=== PATIENT | female | born 1940 | race Caucasian/White ===

== ENCOUNTER 2017-04-07 16:21 | Observation (INO) | payer MEDICARE, OTHER ==
[2017-04-07] MEDS ORDERED: Lactated Ringers 1,000 ML IV SCH ×2 (17:00→18:00)
[2017-04-07 17:01] LABS: Appearance SLIGHTLY CLOUDY (CLEAR); Specific Gravity 1.025 (1.005-1.025)
[2017-04-07 17:02] LABS: BASOPHIL % 0.2 % (0.0-0.4); Basophil (Absolute #) 0.03 (0-0.4); Eosinophil % 1.1 % (0.00-5.0); Eosinophil (Absolute #) 0.15 (0-0.5); Granulocyte Absolute (ANC) 8.49 (1.4-6.9); Granulocytes % 64.8 % (36.0-66.0); Hematocrit 43.5 % (35-47); Hemoglobin 14.1 gm/dl (12.0-16.0); Lymphocyte (Absolute #) 3.42 (1.0-4.6); Mean Cell Volume 85.6 fl (78-100); Mean Corpuscular Hemoglobin 27.8 pg (26-32); Mean Corpuscular Hgb Concent. 32.4 g/dl (32-36); Mean Platelet Volume 9.8 fl (6-9.5); Monocyte (Absolute #) 1.04 (0.0-1.3); Monocytes % 7.9 % (0.0-12.0); Platelet Count 287 K/mm3 (150-450); Red Blood Count 5.08 M/mm3 (4.1-5.4); White Blood Count 13.1 K/mm3 (4.0-10.5)
[2017-04-07 17:02] LABS: Bilirubin NEGATIVE (NEGATIVE); Blood NEGATIVE Ery/ul (0-5); Glucose NEGATIVE (NEGATIVE); Ketones NEGATIVE (NEGATIVE); Leukocyte Esterase NEGATIVE (NEGATIVE); Nitrite NEGATIVE (NEGATIVE); Protein,Urine Dip NEGATIVE (Negative); Urobilinogen NORMAL mg/dL (0-1)
[2017-04-07] MEDS ORDERED: Lactated Ringers 1,000 ML IV ONE (17:12)
--- NOTE | 2017-04-07 17:12 | ERPHSYRPT ---
- History of Present Illness Time Seen by Provider: 04/07/17 16:30 Source: patient Patient Subjective Stated Complaint: states had blood work done and was told to come to er for dehydration. c/o weakness. had diarrhea for two days and vomiting for one day. Triage Nursing Assessment: ambulated to room per self. skin w/d, color normal, resp easy. mouth moist. Physician History: CC: dehydrated Hx: 76 y/o patient of Dr Rivera with hx of renal insuff. She has afib. She had vomiting and diarrhea Tues and Wed. She is now feeling better but still somewhat weak. She has no fever. Normal urination but has a shy bladder. She came to get a routine follow up blood test and was called and told to come to ER for dehydration. No hx of CHF. Severity: mild Allergies/Adverse Reactions: No Known Drug Allergies Allergy (Verified 04/07/17 16:45) Home Medications: Amlodipine Besylate 5 mg [Norvasc 5 mg] 5 mg PO DAILY 04/06/17 [History] Calcium [Natural Calcium] 500 mg PO DAILY 04/06/17 [History] Dronedarone Hydrochloride 400* [Multaq 400 MG] 400 mg PO BID 04/06/17 [ History] Hydrochlorothiazide 25 mg [hydroDIURIL 25 MG] 25 mg PO DAILY 04/06/17 [ History] Multivitamin [Multivitamins] 1 each PO DAILY 04/06/17 [History] Olmesartan Medoxomil 20 mg [Benicar 20 MG] 20 mg PO DAILY 04/06/17 [ History] Pravastatin Sodium [Pravachol] 20 mg PO QHS 04/06/17 [History] Rivaroxaban [Xarelto] 20 mg PO DAILY 04/06/17 [History] Hx Tetanus, Diphtheria Vaccination/Date Given: No Hx Influenza Vaccination/Date Given: Yes Hx Pneumococcal Vaccination/Date Given: No - Review of Systems Constitutional: Malaise, No Fever, No Chills Eyes: No Symptoms Ears, Nose, & Throat: No Symptoms Respiratory: No Cough, No Dyspnea Cardiac: No Chest Pain Abdominal/Gastrointestinal: Vomiting (gone), Diarrhea (gone), No Abdominal Pain , No Nausea Genitourinary Symptoms: No Dysuria Skin: No Rash Neurological: No Headache All Other Systems: Reviewed and Negative - Past Medical History Pertinent Past Medical History: Yes Neurological History: No Pertinent History ENT History: No Pertinent History Cardiac History: Arrhythmia, High Cholesterol, Hypertension Respiratory History: No Pertinent History Endocrine Medical History: No Pertinent History Musculoskeletal History: No Pertinent History GI Medical History: No Pertinent History History: Renal Disease Psycho-Social History: No Pertinent History Female Reproductive Disorders: No Pertinent History - Past Surgical History Past Surgical History: Yes Neuro Surgical History: No Pertinent History Cardiac: No Pertinent History Respiratory: No Pertinent History Gastrointestinal: Appendectomy Genitourinary: No Pertinent History Musculoskeletal: Orthopedic Surgery Female Surgical History: No Pertinent History Other Surgical History: Right rotator cuff repair - Social History Smoking Status: Former smoker Exposure to second hand smoke: Yes Drug Use: none Patient Lives Alone: No - Female History Hx Now: No - Nursing Vital Signs Nursing Vital Signs: Initial Vital Signs Temperature 97.7 F 04/07/17 16:33 Pulse Rate 65 04/07/17 16:33 Respiratory Rate 16 04/07/17 16:33 Blood Pressure 170/92 04/07/17 16:33 O2 Sat by Pulse Oximetry 99 04/07/17 16:33 Pain Scale Pain Intensity 0 - Physical Exam General Appearance: alert Eye Exam: PERRL/EOMI Ears, Nose, Throat Exam: normal ENT inspection, moist mucous membranes Neck Exam: normal inspection, non-tender, supple Respiratory Exam: normal breath sounds Cardiovascular Exam: regular rate/rhythm Gastrointestinal/Abdomen Exam: soft, No tenderness, No distention, No mass, No guarding Extremity Exam: normal inspection, normal range of motion, No calf tenderness, No pedal edema Neurologic Exam: alert, oriented x 3, cooperative, rig mechanic II-XII nml as tested, sensation nml, No motor deficits Skin Exam: warm, dry, No rash SpO2 Interpretation: normal SpO2: 99 Oxygen Delivery: Room Air - Course Nursing assessment & vital signs reviewed: Yes Ordered Tests: Active Orders 24 hr Category Date Time Status Cath for Specimen-Straight STAT Care 04/07/17 16:39 Active IV Insertion STAT Care 04/07/17 16:38 Active CBC W DIFF Stat Lab 04/07/17 16:56 Completed CMP Stat Lab 04/07/17 16:56 Completed UA W/RFX UR CULTURE Stat Lab 04/07/17 17:00 Completed Medication Summary Generic Name Dose Route Start Last Admin Trade Name Marlon PRN Reason Stop Dose Admin Lactated Ringer's 1,000 mls @ 500 mls/hr 04/07/17 17:00 04/07/17 17:15 Lactated Ringers IV 05/07/17 16:59 500 mls/hr .Q2H DWAIN Administration Discontinued Medications Generic Name Dose Route Start Last Admin Trade Name Marlon PRN Reason Stop Dose Admin Lactated Ringer's Confirm 04/07/17 17:12 Lactated Ringers Administered 04/07/17 17:13 Dose 1,000 mls @ ud IV .[facility] Lab/Rad Data: Laboratory Result Diagrams 04/07/17 16:56 04/07/17 16:56 Laboratory Results 04/07/17 04/07/17 04/07/17 Range/Units 17:00 16:56 16:56 WBC 13.1 H (4.0-10.5) K/mm3 RBC 5.08 (4.1-5.4) M/mm3 Hgb 14.1 (12.0-16.0) gm/dl Hct 43.5 (35-47) % MCV 85.6 (78-100) fl MCH 27.8 (26-32) pg MCHC 32.4 (32-36) g/dl RDW 13.0 (11.5-14.0) % Plt Count 287 (150-450) K/mm3 MPV 9.8 H (6-9.5) fl Gran % 64.8 (36.0-66.0) % Lymphocytes % 26.0 (24.0-44.0) % Monocytes % 7.9 (0.0-12.0) % Eosinophils % 1.1 (0.00-5.0) % Basophils % 0.2 (0.0-0.4) % Basophils # 0.03 (0-0.4) Sodium 137 (136-145) mEq/L Potassium 4.3 (3.5-5.1) mEq/L Chloride 101 (98-107) mEq/L Carbon Dioxide 23.2 (21-32) mEq/L Anion Gap 16.7 H (5-15) MEQ/L BUN 36 H (9-20) mg/dL Creatinine 2.21 H (0.55-1.30) mg/dl Estimated GFR 23 ML/MIN Glucose 91 (70-110) MG/DL Calcium 8.8 (8.5-10.1) mg/dL Total Bilirubin 1.00 (0.2-1.0) mg/dL AST 16 (15-37) U/L ALT 31 (12-78) U/L Alkaline Phosphatase 85 (46-116) U/L Serum Total Protein 8.1 (6.4-8.2) gm/dL Albumin 4.1 (3.4-5.0) g/dL Ur Collection Type CCMS Urine Color YELLOW (YELLOW) Urine Appearance SLIGHTLY CLOUDY (CLEAR) Urine pH 5.0 (5-6) Ur Specific [place] 1.025 (1.005-1.025) Urine Protein NEGATIVE (Negative) Urine Ketones NEGATIVE (NEGATIVE) Urine Blood NEGATIVE (0-5) Keaton/ul Urine Nitrite NEGATIVE (NEGATIVE) Urine Bilirubin NEGATIVE (NEGATIVE) Urine Urobilinogen NORMAL (0-1) mg/dL Ur Leukocyte Esterase NEGATIVE (NEGATIVE) Urine Culture Reflexed NO (NO) Urine Glucose NEGATIVE (NEGATIVE) mg/dL Specimen Received 04-07-17 1700 - Progress Progress Note: 04/07/17 17:[address] Rivera who advised IVF overnight obs. Called Dr Anastasiya Dixon who accepts. Discussed with DrMerritt: Miguel Crocker Will see patient in: hospital (observation) Counseled pt/family regarding: lab results, diagnosis, need for follow-up - Departure Time of Disposition: 17:33 Departure Disposition: Observation Clinical Impression: Azotemia Condition: Fair Critical Care Time: No Referrals: YARY RIVERA [Primary Care Provider] -
[2017-04-07 17:22] LABS: ALBUMIN 4.1 g/dL (3.4-5.0); ANION GAP 16.7 MEQ/L (5-15); Calcium 8.8 mg/dL (8.5-10.1); Carbon Dioxide 23.2 mEq/L (21-32); Creatinine 1 2.21 mg/dl (0.55-1.30); Potassium 4.3 mEq/L (3.5-5.1); Total Protein 8.1 gm/dL (6.4-8.2)
[2017-04-07] MEDS ORDERED: TYLENOL 325 MG PO PRN (17:56)
--- NOTE | 2017-04-07 20:28 | PCM.HP ---
History of Present Illness - Chief Complaint Chief Complaint: azotemia Date: 04/07/17 History of Present Illness: is a 76 year old female. who became ill wiht nausea vomiting and diarrhea 3 days ago the diarrhea resolved yesterday. She had some labs done 4 days ago and was told to hold benicar and recheck labs today. labs returned with worsneing renal function and Dr. Rivera advised she go to ED. She did and was admitted for dehydration. She is feeling well has started eating today and drinking today. No chest pain or sob. no abdominal pain nausea or vomiting. She follows with Dr. patel for her CKD - Review of Systems Constitutional: No Fever, No Chills Eyes: No Symptoms Ears, Nose, & Throat: No Symptoms Respiratory: No Cough, No Short Of Breath Cardiac: No Chest Pain, No Edema, No Syncope Abdominal/Gastrointestinal: No Abdominal Pain, No Nausea, No Vomiting, No Diarrhea Genitourinary Symptoms: No Dysuria Musculoskeletal: No Back Pain, No Neck Pain Skin: No Rash Neurological: No Dizziness, No Focal Weakness, No Sensory Changes Psychological: No Symptoms Endocrine: No Symptoms Hematologic/Lymphatic: No Symptoms Immunological/Allergic: No Symptoms Medications & Allergies Home Medications: Home Medication List Amlodipine Besylate 5 mg [Norvasc 5 mg] 5 mg PO DAILY 04/06/17 [History Confirmed 04/07/17] Calcium [Natural Calcium] 500 mg PO DAILY 04/06/17 [History Confirmed 04/07/17] Dronedarone Hydrochloride 400* [Multaq 400 MG] 400 mg PO BID 04/06/17 [ History Confirmed 04/07/17] Multivitamin [Multivitamins] 1 each PO DAILY 04/06/17 [History Confirmed ] Olmesartan Medoxomil 20 mg [Benicar 20 MG] 20 mg PO DAILY 04/06/17 [ History Confirmed 04/07/17] Pravastatin Sodium [Pravachol] 20 mg PO DAILY 04/06/17 [History Confirmed ] Rivaroxaban [Xarelto] 20 mg PO DAILY 04/06/17 [History Confirmed 04/07/17] Chlorthalidone 25 mg PO DAILY 04/07/17 [History Confirmed 04/07/17] Solifenacin Succinate [Vesicare] 5 mg PO DAILY 04/07/17 [History Confirmed 04/07] Allergies/Adverse Reactions: Allergies Allergy/AdvReac Type Severity Reaction Status Date / Time No Known Drug Allergies Allergy Verified 04/07/17 16:45 - Past Medical History Past Medical History: Yes Neurological History: No Pertinent History ENT History: No Pertinent History Cardiac History: Arrhythmia, High Cholesterol, Hypertension Respiratory History: No Pertinent History Endocrine Medical History: No Pertinent History Musculoskelatal History: Arthritis GI Medical History: No Pertinent History History: Renal Disease Pyscho-Social History: No Pertinent History Reproductive Disorders: No Pertinent History - Female History Are you now?: No - Past Surgical History Past Surgical History: Yes Neuro Surgical History: No Pertinent History Cardiac History: No Pertinent History Respiratory Surgery: No Pertinent History GI Surgical History: Appendectomy Genitourinary Surgical Hx: No Pertinent History Musculskeletal Surgical Hx: Orthopedic Surgery Female Surgical History: No Pertinent History Other Surgical History: Right rotator cuff repair - Social History Smoking Status: Former smoker How long have you smoked: 40 yrs Exposure to second hand smoke: No Alcohol: None Drug Use: none - Physical Exam Vital Signs: Vital Signs - 24 hr Temp Pulse Resp BP BP Pulse Ox 04/07/17 17:57 97.9 F 56 L 16 165/71 93 L 04/07/17 17:33 99 04/07/17 17:31 57 L 16 143/61 97 04/07/17 16:33 97.7 F 65 16 170/92 99 Assessment/Plan (1) Acute on chronic renal failure Current Visit: Yes Status: Acute Assessment & Plan: she has benicar on hold since prior to admission she is to hold her xarelto starting tomorrow for colonoscopy on monday. she is feeling better now continue fluid hydration overnight monitor am renal function likely home tomorrow increase LR to 150 mL/h Code(s): N17.9 - ACUTE KIDNEY FAILURE, UNSPECIFIED; N18.9 - CHRONIC KIDNEY DISEASE, UNSPECIFIED (2) Atrial fibrillation Current Visit: Yes Status: Chronic Code(s): I48.91 - UNSPECIFIED ATRIAL FIBRILLATION (3) Essential hypertension Current Visit: Yes Status: Chronic Code(s): I10 - ESSENTIAL (PRIMARY) HYPERTENSION
[2017-04-07] MEDS ORDERED: ZOCOR 20MG PO SCH (22:00)
[2017-04-07] MEDS ORDERED: Multaq 400 MG PO SCH (22:00)
[2017-04-08 06:13] LABS: BASOPHIL % 0.3 % (0.0-0.4); Basophil (Absolute #) 0.03 (0-0.4); Eosinophil % 1.8 % (0.00-5.0); Eosinophil (Absolute #) 0.17 (0-0.5); Granulocyte Absolute (ANC) 6.38 (1.4-6.9); Granulocytes % 66.6 % (36.0-66.0); Hematocrit 36.2 % (35-47); Hemoglobin 11.8 gm/dl (12.0-16.0); Lymphocyte (Absolute #) 2.24 (1.0-4.6); Lymphocytes % 23.4 % (24.0-44.0); Mean Corpuscular Hgb Concent. 32.6 g/dl (32-36); Mean Platelet Volume 9.9 fl (6-9.5); Monocyte (Absolute #) 0.76 (0.0-1.3); Monocytes % 7.9 % (0.0-12.0); Platelet Count 236 K/mm3 (150-450); Red Blood Count 4.21 M/mm3 (4.1-5.4); Red Cell Distribution Width 12.7 % (11.5-14.0); White Blood Count 9.6 K/mm3 (4.0-10.5)
[2017-04-08 06:48] LABS: Calcium 8.5 mg/dL (8.5-10.1); Carbon Dioxide 22.9 mEq/L (21-32); Creatinine 1 1.69 mg/dl (0.55-1.30); Potassium 4.2 mEq/L (3.5-5.1)
[2017-04-08 07:46] VITALS: BP 134/65; PULSE 84; O2SAT 93
--- NOTE | 2017-04-08 08:33 | PCM.DS ---
Discharge Summary Date of Admission: 04/07/17 17:50 Date of Discharge: 04/08/2017 Admitting Physician: YARY MOULTON Primary Care Provider: YARY MOULTON Allergies Allergies No Known Drug Allergies Allergy (Verified 04/07/17 16:45) Hospital Summary - Hospital Course Hospital Course: Ms. Anders sufferes from CKD and follows with Dr. Deras. She was feeling nasueated vomiting and diarrhea several days prior to admission and was seen and had increased creatinine she started to improve and was eating better the day of admission with no diarrhea and went for repeat lab draw that showed persitent elevated creatinine above baseline and she had been holding her losartan for 4 days. She was advised by her pcp to go to the ED. She was thus admitted overnight for fluid resucitation. She remained asymptomatic overnight and was placed on LR at 150 mL/h and tolerated well with good urine output no swelling or shortness of breath. Her blood pressure was controlled and creatinine was slightly better then baseline in the am and she was requesting discharge to home. at time of discharge she will be holding her xarelto for upcomming colonoscopy on Monday. Discussed with her to discuss with pcp, rib cutter or yard brakeman about possibly reducing dose to 15 mg with her creatinine clearance. - Vitals & Intake/Output Vital Signs: Vital Signs Temperature 97.6 F 04/08/17 07:45 Pulse Rate 84 04/08/17 07:45 Respiratory Rate 18 04/08/17 07:45 Blood Pressure 134/65 04/08/17 07:45 O2 Sat by Pulse Oximetry 93 L 04/08/17 07:45 Intake & Output: Intake & Output 04/05/17 04/06/17 04/07/17 04/08/17 11:59 11:59 11:59 11:59 Intake Total 1757 Balance 1757 Weight 77.8 kg - Lab Result Diagrams: 04/08/17 05:52 04/08/17 05:52 Lab Results-Last 24 Hrs: Lab Results-Last 24 Hours 04/08/17 04/08/17 Range/Units 05:52 05:52 WBC 9.6 (4.0-10.5) K/mm3 RBC 4.21 (4.1-5.4) M/mm3 Hgb 11.8 L (12.0-16.0) gm/dl Hct 36.2 (35-47) % MCV 86.0 (78-100) fl MCH 28.0 (26-32) pg MCHC 32.6 (32-36) g/dl RDW 12.7 (11.5-14.0) % Plt Count 236 (150-450) K/mm3 MPV 9.9 H (6-9.5) fl Gran % 66.6 H (36.0-66.0) % Lymphocytes % 23.4 L (24.0-44.0) % Monocytes % 7.9 (0.0-12.0) % Eosinophils % 1.8 (0.00-5.0) % Basophils % 0.3 (0.0-0.4) % Basophils # 0.03 (0-0.4) Sodium 139 (136-145) mEq/L Potassium 4.2 (3.5-5.1) mEq/L Chloride 106 (98-107) mEq/L Carbon Dioxide 22.9 (21-32) mEq/L Anion Gap 14.0 (5-15) MEQ/L BUN 33 H (9-20) mg/dL Creatinine 1.69 H (0.55-1.30) mg/dl Estimated GFR 31 ML/MIN Glucose 93 (70-110) MG/DL Calcium 8.5 (8.5-10.1) mg/dL Discharge Exam General Appearance: no apparent distress, alert Neurologic Exam: alert, oriented x 3, cooperative, normal mood/affect, nml cerebellar function, sensation nml, No motor deficits Skin Exam: normal color, warm, dry Eye Exam: PERRL, EOMI, eyes nml inspection Ears, Nose, Throat Exam: normal ENT inspection, pharynx normal, moist mucous membranes Neck Exam: normal inspection, non-tender, supple, full range of motion Respiratory Exam: normal breath sounds, lungs clear, No respiratory distress Cardiovascular Exam: regular rate/rhythm, normal heart sounds Gastrointestinal/Abdomen Exam: soft, No tenderness, No mass Extremity Exam: normal inspection, normal range of motion Back Exam: normal inspection, normal range of motion, No CVA tenderness, No vertebral tenderness Pelvic Exam: deferred Rectal Exam: deferred Final Diagnosis/Problem List - Final Discharge Diagnosis/Problem (1) Acute on chronic renal failure Status: Acute (2) Atrial fibrillation Status: Chronic (3) Essential hypertension Status: Chronic - Discharge Discharge Date: 04/08/17 Disposition: Home, Self-Care Condition: Stable Prescriptions: Continue Pravastatin Sodium [Pravachol] 20 mg PO DAILY Calcium [Natural Calcium] 500 mg PO DAILY Amlodipine Besylate 5 mg [Norvasc 5 mg] 5 mg PO DAILY Olmesartan Medoxomil 20 mg [Benicar 20 MG] 20 mg PO DAILY Dronedarone Hydrochloride 400* [Multaq 400 MG] 400 mg PO BID Rivaroxaban [Xarelto] 20 mg PO DAILY Multivitamin [Multivitamins] 1 each PO DAILY Chlorthalidone 25 mg PO DAILY Solifenacin Succinate [Vesicare] 5 mg PO DAILY Instructions: Acute Kidney Failure Additional Instructions: Do not restart Xarelto until after colonoscopy as directed by your physician. Drink plenty of water. Follow up with: YARY MOULTON [Primary Care Provider] - Forms: Discharge Instructions
[2017-04-08] MEDS ORDERED: NORVASC 5 MG PO SCH (10:00)
[2017-04-08] MEDS ORDERED: NON-FORMULARY ITEM (Chlorthalidone [Chlorthalidone] 25 MG) PO SCH (10:00)
== END 2017-04-08 09:34 | disposition home or self-care (01) ==
LOC: ED 16:21 → MED SURG 17:50
PROVIDERS: ADMIT Family Medicine; ATTEND Family Medicine
DX: N17.9 Acute kidney failure, unspecified (principal); I12.9 Hypertensive chronic kidney disease with stage 1 through stage 4 chronic kidney disease, or unspecified chronic kidney disease; N18.9 Chronic kidney disease, unspecified; I48.91 Unspecified atrial fibrillation; I10 Essential (primary) hypertension; E78.00 Pure hypercholesterolemia, unspecified
CPT/HCPCS: 93268 ×2; 99285; 36000; 96360; 96361; 81002; 36415 ×2; 85025 ×2; 80048 ×2; 80053; P9612; G0378; A9270-GY

== ENCOUNTER 2017-04-11 05:52 | Day surgery (SDC) | payer MEDICARE, OTHER ==
[2017-04-11] MEDS ORDERED: DIPRIVAN 200 MG/20 ML IV ONE (05:53)
[2017-04-11] MEDS ORDERED: Ketamine HCl 50 MG/ML IV ONE (05:53)
[2017-04-11] MEDS ORDERED: Lactated Ringers 1,000 ML IV ONE (06:11)
[2017-04-11] MEDS ORDERED: Lactated Ringers 1,000 ML IV SCH (06:30)
[2017-04-11 08:37] VITALS: O2SAT 97
[2017-04-11 08:53] VITALS: BP 140/63; PULSE 62
--- NOTE | 2017-04-11 14:48 | OP ---
SURGERY DATE/TIME: 04/11/2017 0727 PREOPERATIVE DIAGNOSIS: Rectal bleeding. POSTOPERATIVE DIAGNOSIS: A 1 cm polyp in the transverse colon and focal area of colitis. PROCEDURE: Colonoscopy with cold biopsy polypectomy. SURGEON: Dr. Patel. ANESTHESIA: MAC. Medications given by anesthesia department. HISTORY: The patient is a 76 year-old white female presents for colonoscopic evaluation. She reports she has been having problems rectal bleeding intermittently. The patient was felt the need to have endoscopic evaluation. She reported she had a previous colonoscopy about seven years ago. The patient was appraised of the risks of the procedure including the risk of perforation, phlebitis, untoward reaction to medication, bleeding and missed lesions. The patient verbalized her understanding and desired to have the procedure performed. DESCRIPTION OF PROCEDURE: The patient was given the medications by the anesthesia department. She had continuous pulse oximetry, ECG monitoring, intermittent blood pressure monitoring and tidal CO2 monitoring during the examination. She was placed in the left lateral decubitus position. A digital rectal examination was performed and revealed normal anal sphincter tone and no masses. The flexible Olympus pediatric colonoscope was used to intubate the rectum. A view of the colon was developed sequentially to the cecum. Upon insertion and withdrawal, including a retroflex view in the rectum, was noted a focal area of colitis in the sigmoid colon which was apparent with erosion and mucus appearance with small amounts of blood. There was also noted a small polyp in the proximal transverse colon that was sessile. It was removed using multiple passes with cold biopsy forceps to completely destroy the lesion. The scope was removed from the patient who tolerated the procedure well and was sent back to OP recovery in good condition. The prep was noted to be fair to good.
== END 2017-04-11 08:55 | disposition home or self-care (01) ==
LOC: SDC 05:52
PROVIDERS: ATTEND Family Medicine
PROC: 0DBL8ZX Excision of Transverse Colon, Via Natural or Artificial Opening Endoscopic, Diagnostic (ICD-10-PCS; principal; 2017-04-11)
DX: K62.5 Hemorrhage of anus and rectum (principal); K63.5 Polyp of colon
CPT/HCPCS: 00812; 88305; 99100; J2704

== ENCOUNTER 2020-03-06 10:34 | Observation (INO) | payer MEDICARE, OTHER ==
[2020-03-06] MEDS ORDERED: DUONEB 0.5-3 MG/3 ml Neb IH ONE (10:54)
[2020-03-06] MEDS: DUONEB 0.5-3 MG/3 ml Neb IH SCH ×3 (11:02→18:56)
[2020-03-06] MEDS ORDERED: Ativan 2 MG/1 ML VIAL IV SCH (11:15)
[2020-03-06 11:18] LABS: Absolute Neutrophil Ct (ANC) 8.11 (1.4-6.9); BASOPHIL % 0.4 % (0.0-0.4); Basophil (Absolute #) 0.05 (0-0.4); Eosinophil % 1.3 % (0.00-5.0); Eosinophil (Absolute #) 0.16 (0-0.5); Hemoglobin 9.7 gm/dl (12.0-16.0); Lymphocyte (Absolute #) 2.85 (1.0-4.6); Lymphocytes % 23.4 % (24.0-44.0); Mean Corpuscular Hemoglobin 24.6 pg (26-32); Mean Corpuscular Hgb Concent. 30.3 g/dl (32-36); Mean Platelet Volume 8.6 fl (7.5-11.0); Monocytes % 8.2 % (0.0-12.0); Neutrophil % 66.7 % (36.0-66.0); Platelet Count 341 K/mm3 (150-450); Red Blood Count 3.95 M/mm3 (4.1-5.4); Red Cell Distribution Width 15.4 % (11.5-14.0); White Blood Count 12.2 K/mm3 (4.0-10.5)
--- NOTE | 2020-03-06 11:27 | XRAY ---
Indication: Dyspnea, tachycardia, and edema. Comparison: None Portable chest demonstrates cardiomegaly, central vascular congestion, and small bibasilar effusions/atelectasis favoring cardiac decompensation/CHF. Superimposed pneumonia not completely excluded. Bony thorax intact.
[2020-03-06 11:43] LABS: INR 1.46 (0.8-3.0); PROTIME 16.6 SECONDS (9.95-12.35)
[2020-03-06 11:46] LABS: ALBUMIN 4.4 g/dL (3.5-5.0); ALKALINE PHOSPHATASE 74 U/L (38-126); ANION GAP 13.6 MEQ/L (5-15); BLOOD UREA NITROGEN 26 mg/dL (7-17); CHLORIDE 105 mmol/L (98-107); Calcium 9.8 mg/dL (8.4-10.2); Carbon Dioxide 23 mmol/L (22-30); Creatinine 1 1.63 mg/dL (0.52-1.04); EST GLOMERULAR FILTRATION RATE 32.4 ML/MIN; Glucose 99 mg/dL (74-106); NT PRO BNP 1780 pg/mL (0-1800); PTT 33.5 SECONDS (25.3-37.0); Potassium 3.9 mmol/L (3.5-5.1); SGOT/AST 27 U/L (14-36); SGPT/ALT 18 U/L (0-35); SODIUM 138 mmol/L (137-145); TROPONIN < 0.012 ng/mL (0.000-0.034); Total Protein 7.5 g/dL (6.3-8.2)
[2020-03-06] MEDS ORDERED: solu-MEDROL 125 MG IV SCH (12:00)
--- NOTE | 2020-03-06 12:38 | XRAY ---
Indication: Leg edema. Tachycardia. Dyspnea. Two-dimensional sonogram and color Doppler imaging of the major venous vessels of the left and right leg was performed. Comparison: None No thrombus seen in the examined deep venous vessels of the left and right leg including greater saphenous vein. Veins demonstrate normal compressibility. Venous waveforms are normal with and without augmentation. Impression: Left and right legs negative for DVT.
[2020-03-06 12:50] LABS: Appearance CLEAR (CLEAR); Bilirubin NEGATIVE (NEGATIVE); Blood NEGATIVE Ery/ul (0-5); Glucose NEGATIVE (NEGATIVE); Ketones NEGATIVE (NEGATIVE); Leukocyte Esterase NEGATIVE (NEGATIVE); Mucus SLIGHT /HPF (NEGATIVE); Nitrite NEGATIVE (NEGATIVE); Protein,Urine Dip NEGATIVE (Negative); Specific Gravity 1.008 (1.005-1.025); Urobilinogen NEGATIVE mg/dL (0-1)
[2020-03-06] MEDS ORDERED: Lasix 40 MG/4 ML IV ONE (13:00)
[2020-03-06] MEDS: Sodium Chloride 0.9% 1000 ML 1,000 ML IV SCH (13:02)
--- NOTE | 2020-03-06 14:20 | ECHO ---
DATE OF PROCEDURE: 03/06/2020 CLINICAL INFORMATION: Dyspnea, tachycardia, lower extremity edema. The M-mode 2D, and Doppler echocardiogram including color flow Doppler shows the left ventricle is normal in size at 4.6 cm. There is no thrombus present. The septal wall thickness is increased at 1.5 cm. The left ventricular posterior wall thickness is increased at 1.5 cm. There is accentuated contractility of the left ventricle. The ejection fraction is 73%. The right ventricle is grossly normal. The left atrium is normal in size. The interatrial septum is intact. The right atrium is normal. The aortic valve opens well. There is no aortic regurgitation. There is mitral valve leaflet thickening associated with mild mitral regurgitation. There is mild tricuspid regurgitation. The right ventricular systolic pressure is elevated 59 mm of Mercury. The pulmonic valve is not well visualized. The aortic root is normal at 3.0 cm. There is a medium sized posterior pericardial effusion present. There is no evidence of tamponade although the echocardiogram is technically difficult. IMPRESSION: 1) MEDIUM SIZED POSTERIOR PERICARDIAL EFFUSION. 2) MILD TO MODERATE CONCENTRIC LEFT VENTRICULAR HYPERTROPHY. 3) ACCENTUATED CONTRACTILITY OF THE LEFT VENTRICLE. 4) MILD MITRAL REGURGITATION. 5) MILD TRICUSPID REGURGITATION. 6) SEVERE PULMONARY HYPERTENSION.
--- NOTE | 2020-03-06 18:19 | XRAY ---
Indication: Pulmonary edema. Multiple contiguous axial images obtained through the chest without contrast as ordered. Comparison: February 19, 2020. Heart remains enlarged again with small pericardial effusion. Aorta remains mildly larger sclerotic without aneurysm. No pathologic mediastinal lymphadenopathy. Stable small hiatal hernia. Lungs demonstrates worsening mild/moderate bilateral pleural effusions with new mild bibasilar compressive atelectasis. Remaining lungs demonstrate stable pulmonary emphysema. Bony thorax intact again with minimal degenerative changes throughout the spine. Limited upper abdomen again demonstrates 2 incompletely visualized left renal cysts. Impression: 1. Stable cardiomegaly with small pericardial effusion. Interval worsening bilateral pleural effusions with new bibasilar compressive atelectasis favoring cardiac decompensation versus fluid overload. 2. Grossly stable left renal cysts and small hiatal hernia.
[2020-03-06] MEDS: NORVASC 5 MG PO SCH (22:05)
[2020-03-06] MEDS: ELIQUIS 2.5 MG TABLET PO SCH (22:05)
[2020-03-07] MEDS: Sodium Chloride 0.9% 1000 ML 1,000 ML IV SCH (01:30)
[2020-03-07] MEDS ORDERED: Advair Hfa 115/21 Common canister IH SCH (07:00)
[2020-03-07] MEDS: PATIENT OWN MEDICATION IH SCH (07:11)
[2020-03-07] MEDS: DUONEB 0.5-3 MG/3 ml Neb IH SCH ×4 (07:11→19:30)
[2020-03-07] MEDS ORDERED: NON-FORMULARY ITEM (Pravastatin Sodium [Pravachol] 20 MG) PO SCH (10:00)
[2020-03-07] MEDS ORDERED: ZOCOR 20MG PO SCH (10:00)
[2020-03-07] MEDS ORDERED: VALSARTAN 40 MG PO SCH (10:00)
[2020-03-07] MEDS: DIOVAN 80 MG PO SCH (10:04)
[2020-03-07] MEDS: ELIQUIS 2.5 MG TABLET PO SCH ×2 (10:05→22:11)
[2020-03-07] MEDS: Cardizem 30 MG PO SCH ×3 (10:38→23:49)
[2020-03-07] MEDS ORDERED: Sodium Chloride 0.9% 10 ML FLUSH Syringe IV PRN (10:45)
[2020-03-07] MEDS ORDERED: Lasix 40 MG/4 ML IV SCH (11:00)
[2020-03-07] MEDS ORDERED: Sodium Chloride 0.9% 10 ML FLUSH Syringe IV SCH (14:00)
[2020-03-07 21:18] VITALS: O2SAT 95
[2020-03-07] MEDS: NORVASC 5 MG PO SCH (22:11)
[2020-03-08] MEDS: Cardizem 30 MG PO SCH ×2 (05:57→11:34)
[2020-03-08 06:31] LABS: Hemoglobin 7.9 gm/dl (12.0-16.0); Mean Cell Volume 82.6 fl (78-100); Mean Corpuscular Hemoglobin 24.2 pg (26-32); Mean Corpuscular Hgb Concent. 29.3 g/dl (32-36); Mean Platelet Volume 9.1 fl (7.5-11.0); Platelet Count 308 K/mm3 (150-450); Red Blood Count 3.27 M/mm3 (4.1-5.4); Red Cell Distribution Width 15.8 % (11.5-14.0); White Blood Count 13.6 K/mm3 (4.0-10.5)
[2020-03-08 06:47] LABS: ALBUMIN 3.7 g/dL (3.5-5.0); ANION GAP 13.1 MEQ/L (5-15); BILIRUBIN,TOTAL 0.9 mg/dL (0.2-1.3); Creatinine 1 2.06 mg/dL (0.52-1.04); EST GLOMERULAR FILTRATION RATE 24.8 ML/MIN; Potassium 4.1 mmol/L (3.5-5.1); Total Protein 6.4 g/dL (6.3-8.2)
[2020-03-08] MEDS: DUONEB 0.5-3 MG/3 ml Neb IH SCH (07:09)
[2020-03-08] MEDS: PATIENT OWN MEDICATION IH SCH (07:09)
[2020-03-08 08:33] VITALS: BP 131/51; PULSE 96
[2020-03-08] MEDS: DIOVAN 80 MG PO SCH (09:33)
[2020-03-08] MEDS: ELIQUIS 2.5 MG TABLET PO SCH (09:34)
[2020-03-08] MEDS ORDERED: Zocor 10MG PO SCH (10:00)
--- NOTE | 2020-03-10 15:56 | SSS ---
DISCHARGE DIAGNOSES: 1) ATRIAL FIBRILLATION WITH RAPID VENTRICULAR RESPONSE. 2) CONGESTIVE HEART FAILURE. HISTORY: The patient is a 79 year old white female seen in Dr. Maxwell's office. She noticed that her right calf is red and purplish and noticed on Monday that it had gotten bigger but now painful. She also noticed that she is having increasing shortness of breath. Her O2 saturations have been 96 to 98% at home. She does have home oxygen. The patient felt like she was having a hard time getting a deep breath. She had been seen by Dr. Diallo previously and has a follow up appointment to see him on 03/26/2020. The patient also sees Dr. Corado in cardiology and has an appointment to see him also in March. In the hospital the patient was given Lasix. She was noticed to be in atrial fibrillation with rapid ventricular response in 120's when I saw her on 03/07/2020 in the morning. HOME MEDICATIONS: The patient's current home medications have been Albuterol PRN nebulizer treatments for her chronic obstructive pulmonary disease, amlodipine 10 mg a day, chlorthalidone 25 mg daily, Eliquis 2.5 mg twice a day, ezetimibe 10 mg a day, fluticasone nasal spray, Lasix 20 mg daily if needed. She had previously had been on Multaq. There are reports that she has not been taking that, discontinued by her auto damage insurance appraiser. Nystatin oral suspension, potassium 10 mg when taking Lasix, pravastatin 20 mg a day, Trelegy Ellipta, valsartan 40 mg a day. ALLERGIES: NKDA. PHYSICAL EXAMINATION: The patient's vital signs in the hospital have been noted she had been afebrile during her stay. Pulse rate had gotten up to 136 and now down to 87. Respiratory rate in the 20's at 22. Blood pressure 105/59. O2 saturation 95% with supplemental oxygen. HEENT: Normocephalic, atraumatic. Pupils equal round reactive to light. Extraocular movements intact. Oropharynx is pink and moist. NECK: Supple without lymphadenopathy, thyromegaly or JVD. CHEST: Clear to auscultation. HEART: Irregular and noted to be tachycardic on 03/07/2020 but by 03/08/2020 was running at 87 when last checked. EXTREMITIES: Currently without cyanosis, clubbing or edema. NEUROLOGIC: She is alert and oriented x3 without focal deficits. LAB DATA AND TESTS: The patient's laboratory studies during her stay had shown sugar at 99, BUN 26, creatinine 1.63. Electrolytes were normal. Liver enzymes are normal. She was noted to have an elevated D-dimer at 1,688. She had a white count of 12,200, hemoglobin 9.7, PLT count 341,000. Lactic acid 1.3. UA normal. TSH 3.2. Sed rate was noted to be high at 46 with a positive rheumatoid factor. Her urine culture was no growth. Procalcitonin level was noted and was at upper limits of normal at 0.08. HOSPITAL COURSE: She did receive a dose of Solu-Medrol which caused her white count to rise to 13,600 on the morning of 03/08/2020. The Procalcitonin level was not elevated. The patient had echocardiogram showing medium size posterior pericardial effusion with ejection fraction of 72%. She has mild to moderate concentric left ventricular hypertrophy, severe pulmonary hypertension was noted. Otherwise she had CT chest for the elevated D-dimer, stable cardiomegaly, small pericardial effusion, interval worsening of bilateral pleural effusions with right basilar compressive atelectasis favoring cardiac decompensation versus fluid overload and small, stable left renal cysts and hiatal hernia. Legs were checked for deep venous thrombosis and these were negative. The patient is felt to be ready for discharge home at this time. She has had minimal response to diuresis on the Lasix but has been able to get her heart rate down with Cardizem. She will go home with Cardizem 80 mg every 8 hours at home, continue her usual home medications otherwise and follow up with Dr. Maxwell in the office in the next week and she has appointments also to see her auto damage insurance appraiser and pulmonary specialists.
== END 2020-03-08 11:58 | disposition home or self-care (01) ==
LOC: MED SURG 10:41
PROVIDERS: ADMIT Family Medicine; ATTEND Family Medicine
DX: I50.9 Heart failure, unspecified (principal); Z79.899 Other long term (current) drug therapy; Z79.01 Long term (current) use of anticoagulants; R00.0 Tachycardia, unspecified; R60.0 Localized edema; S81.802A Unspecified open wound, left lower leg, initial encounter; I48.91 Unspecified atrial fibrillation; I10 Essential (primary) hypertension; E78.00 Pure hypercholesterolemia, unspecified; E78.5 Hyperlipidemia, unspecified; Z99.81 Dependence on supplemental oxygen; R79.1 Abnormal coagulation profile; I08.1 Rheumatic disorders of both mitral and tricuspid valves; I27.20 Pulmonary hypertension, unspecified
CPT/HCPCS: 36415; 71045; 71250; 80053; 81001; 82668; 83516; 83605; 83880; 84145; 84443; 84484; 85025; 85027; 85379; 85610; 85652; 85730; 86160; 86225; 86235; 86430; 87086; 93005; 93268; 93306; 93970; 94640; 94762; 97162; G0378; J1940; J2060; J2930; A9270-GY

== ENCOUNTER 2020-03-16 15:26 | Emergency (ER) | payer MEDICARE, OTHER ==
--- NOTE | 2020-03-16 16:24 | XRAY ---
Indication: Pain following fall February 09, 2020. Comparison: None Portable AP/lateral left lower leg demonstrates small heel spurs and mild diffuse lower leg soft tissue swelling/edema. No other bony, articular, or soft tissue abnormalities.
[2020-03-16 16:46] LABS: Absolute Neutrophil Ct (ANC) 8.66 (1.4-6.9); BASOPHIL % 0.3 % (0.0-0.4); Basophil (Absolute #) 0.04 (0-0.4); Eosinophil % 0.7 % (0.00-5.0); Eosinophil (Absolute #) 0.09 (0-0.5); Hematocrit 30.9 % (35-47); Hemoglobin 9.2 gm/dl (12.0-16.0); Lymphocyte (Absolute #) 2.17 (1.0-4.6); Mean Cell Volume 80.1 fl (78-100); Mean Corpuscular Hemoglobin 23.8 pg (26-32); Mean Corpuscular Hgb Concent. 29.8 g/dl (32-36); Mean Platelet Volume 9.2 fl (7.5-11.0); Monocyte (Absolute #) 1.12 (0.0-1.3); Monocytes % 9.3 % (0.0-12.0); Neutrophil % 71.7 % (36.0-66.0); Platelet Count 319 K/mm3 (150-450); Red Blood Count 3.86 M/mm3 (4.1-5.4); Red Cell Distribution Width 15.9 % (11.5-14.0); White Blood Count 12.1 K/mm3 (4.0-10.5)
[2020-03-16 16:56] LABS: ALBUMIN 4.3 g/dL (3.5-5.0); ANION GAP 15.3 MEQ/L (5-15); BILIRUBIN,TOTAL 1.5 mg/dL (0.2-1.3); Creatinine 1 1.93 mg/dL (0.52-1.04); EST GLOMERULAR FILTRATION RATE 26.7 ML/MIN; Potassium 4.3 mmol/L (3.5-5.1); Total Protein 7.5 g/dL (6.3-8.2)
[2020-03-16] MEDS ORDERED: ROCEPHIN 1 Gm-D5w 50 ml Bag** 1 G/50 ML IVPB IV ONE ×2 (17:46→17:51)
--- NOTE | 2020-03-16 17:59 | ERPHSYRPT ---
- History of Present Illness Time Seen by Provider: 03/16/20 15:50 Source: patient Exam Limitations: no limitations Patient Subjective Stated Complaint: pt here for wound to left lower leg since feb 08 after hitting leg on truck while getting in to truck, she was here by PT for reddness to leg Triage Nursing Assessment: pt alert, arrived per wc, resp easy, face mask in place, O2 per nc, skin w/d/p. has wound to lower left leg, it has reddness around site, and she states pain is worse Physician History: Patient is a 79-year-old female presents to our ED for evaluation of a left lower extremity wound. Patient has a wound to the anterior aspect of her left tibia. Wound was an injury sustained on February 08. Patient has been receiving wound care to this area. Patient was receiving wound care today when the therapist observe the area to be red and tender. Patient was brought to our ED for evaluation. No calf pain. No chest pain or shortness of breath. No nausea vomiting or diaphoresis. Pain described as an ache that is well localized. No radiation. Pain worse with palpation to the involved area. Pain improved with rest. Patient voices no other complaints concerns at this time. Patient declined pain medication. Timing/Duration: today Severity: moderate Modifying Factors: Improves With: nothing Associated Symptoms: denies symptoms Allergies/Adverse Reactions: No Known Drug Allergies Allergy (Verified 03/16/20 15:47) Home Medications: Amlodipine Besylate 5 mg [Norvasc 5 mg] 10 mg PO HS 04/06/17 [History] Pravastatin Sodium [Pravachol] 20 mg PO DAILY 04/06/17 [History] Chlorthalidone 25 mg PO DAILY 04/07/17 [History] Apixaban [Eliquis] 2.5 mg PO BID 03/06/20 [History] Ezetimibe 10 mg [Zetia 10 MG] 10 mg PO HS 03/06/20 [History] Fluticasone/Umeclidin/Vilanter [Trelegy Ellipta 100-62.5-25] 1 each IH DAILY 03/06/20 [History] Valsartan 40 mg PO DAILY 03/06/20 [History] Hx Tetanus, Diphtheria Vaccination/Date Given: No Hx Influenza Vaccination/Date Given: Yes Hx Pneumococcal Vaccination/Date Given: No Immunizations Up to Date: Yes Travel Risk - International Travel Have you traveled outside of the country in past 3 weeks: No - Coronavirus Screening Are you exhibiting any of the following symptoms?: No Close contact with a COVID-19 positive Pt in past 14-21 Days: No - Review of Systems Constitutional: No Symptoms, No Fever, No Chills Eyes: No Symptoms Ears, Nose, & Throat: No Symptoms Respiratory: No Symptoms, No Cough, No Dyspnea Cardiac: No Symptoms, No Chest Pain, No Edema, No Syncope Abdominal/Gastrointestinal: No Symptoms, No Abdominal Pain, No Nausea, No Vomiting, No Diarrhea Genitourinary Symptoms: No Symptoms, No Dysuria Musculoskeletal: No Symptoms, No Back Pain, No Neck Pain Skin: No Symptoms, No Rash Neurological: No Symptoms, No Dizziness, No Focal Weakness, No Sensory Changes Psychological: No Symptoms Endocrine: No Symptoms Hematologic/Lymphatic: No Symptoms Immunological/Allergic: No Symptoms All Other Systems: Reviewed and Negative - Past Medical History Pertinent Past Medical History: Yes Neurological History: No Pertinent History ENT History: No Pertinent History Cardiac History: Arrhythmia, Congestive Heart Failure, Coronary Artery Disease Respiratory History: COPD, Sleep Apnea Endocrine Medical History: Other Musculoskeletal History: Osteoarthritis GI Medical History: No Pertinent History History: Renal Disease Psycho-Social History: No Pertinent History Female Reproductive Disorders: No Pertinent History Other Medical History: RECENT HOSPITALIZATION FOR TACHYCARDIA, LE EDEMA, AND DYSPNEA. NEW O2 USER - Past Surgical History Past Surgical History: Yes Neuro Surgical History: No Pertinent History Cardiac: No Pertinent History Respiratory: No Pertinent History Gastrointestinal: Appendectomy Genitourinary: No Pertinent History Musculoskeletal: Orthopedic Surgery Female Surgical History: No Pertinent History Other Surgical History: Right rotator cuff repair - Social History Smoking Status: Former smoker How long have you smoked: 40 yrs Exposure to second hand smoke: No Drug Use: none Patient Lives Alone: No - Female History Hx Last Menstrual Period: post Hx Now: No - Nursing Vital Signs Nursing Vital Signs: Initial Vital Signs Temperature 97 F 03/16/20 15:40 Pulse Rate 78 03/16/20 15:40 Respiratory Rate 24 03/16/20 15:40 Blood Pressure 117/53 03/16/20 15:40 O2 Sat by Pulse Oximetry 93 L 03/16/20 15:40 Pain Scale Pain Intensity 9 - Physical Exam General Appearance: no apparent distress, alert Eye Exam: PERRL/EOMI, eyes nml inspection Ears, Nose, Throat Exam: normal ENT inspection, TMs normal, pharynx normal, moist mucous membranes Neck Exam: normal inspection, non-tender, supple, full range of motion Respiratory Exam: normal breath sounds, lungs clear, No respiratory distress Cardiovascular Exam: regular rate/rhythm, normal heart sounds, normal peripheral pulses Gastrointestinal/Abdomen Exam: soft, normal bowel sounds, No tenderness, No mass Back Exam: normal inspection, normal range of motion, No CVA tenderness, No vertebral tenderness Extremity Exam: normal inspection, normal range of motion, pelvis stable, swelling (No left inguinal lymphadenopathy.), other (There is a chronic 2.5 x 2.5 cm wound at the anterior aspect of the left leg. Homans negative. There is some redness appears to be tracking cephalad from the wound. This area is tender to palpation. Extremities neurovascular intact distally. There appears to be some redness emanating proximally) Neurologic Exam: alert, oriented x 3, cooperative, normal mood/affect, nml cerebellar function, nml station & gait, sensation nml, No motor deficits Skin Exam: normal color, warm, dry, No rash Lymphatic Exam: No adenopathy SpO2 Interpretation: normal SpO2: 94 O2 Delivery: Room Air - Course Nursing assessment & vital signs reviewed: Yes - Radiology Exams Lower Leg X-ray Interpretation: Interpreted by me, Teleradiologist Report (AP lateral left lower leg demonstrate small heel spur and mild diffuse leg soft tissue swelling. Edema. No other bony articular or soft tissue abnormalities.) Ordered Tests: Active Orders 24 hr Category Date Time Status Hotel Front Desk Agent STAT Care 03/16/20 15:57 Active IV Insertion STAT Care 03/16/20 15:55 Active Pulse Oximetry (ED) STAT Care 03/16/20 15:55 Active LOWER LEG Stat Exams 03/16/20 15:58 Completed BLOOD CULTURE Stat Lab 03/16/20 16:25 Received CBC W DIFF Stat Lab 03/16/20 15:55 Completed CMP Stat Lab 03/16/20 16:15 Completed Lactic Acid Stat Lab 03/16/20 16:18 Completed UA W/RFX UR CULTURE Stat Lab 03/16/20 15:56 Ordered Medication Summary Generic Name Dose Route Start Last Admin Trade Name Freq PRN Reason Stop Dose Admin Ceftriaxone Sodium/Dextrose 1 g in 50 mls @ 100 mls/hr 03/16/20 17:46 03/16/20 17:52 Rocephin 1 Gm-D5w 50 Ml Bag IV 03/16/20 18:15 100 mls/hr STAT ONE 100 mls/hr Administration Discontinued Medications Generic Name Dose Route Start Last Admin Trade Name Marlon PRN Reason Stop Dose Admin Ceftriaxone Sodium/Dextrose Confirm 03/16/20 17:51 Rocephin 1 Gm-D5w 50 Ml Bag Administered 03/16/20 17:52 Dose 1 g in 50 mls @ ud IV .STK-MED ONE Lab/Rad Data: Laboratory Result Diagrams 03/16/20 15:55 03/16/20 16:15 Laboratory Results 03/16/20 03/16/20 03/16/20 Range/Units 16:18 16:15 15:55 WBC 12.1 H (4.0-10.5) K/mm3 RBC 3.86 L (4.1-5.4) M/mm3 Hgb 9.2 L (12.0-16.0) gm/dl Hct 30.9 L (35-47) % MCV 80.1 (78-100) fl MCH 23.8 L (26-32) pg MCHC 29.8 L (32-36) g/dl RDW 15.9 H (11.5-14.0) % Plt Count 319 (150-450) K/mm3 MPV 9.2 (7.5-11.0) fl Gran % 71.7 H (36.0-66.0) % Eos # (Auto) 0.09 (0-0.5) Absolute Lymphs (auto) 2.17 (1.0-4.6) Absolute Monos (auto) 1.12 (0.0-1.3) Lymphocytes % 18.0 L (24.0-44.0) % Monocytes % 9.3 (0.0-12.0) % Eosinophils % 0.7 (0.00-5.0) % Basophils % 0.3 (0.0-0.4) % Absolute Granulocytes 8.66 H (1.4-6.9) Basophils # 0.04 (0-0.4) Sodium 138 (137-145) mmol/L Potassium 4.3 (3.5-5.1) mmol/L Chloride 104 (98-107) mmol/L Carbon Dioxide 23 (22-30) mmol/L Anion Gap 15.3 H (5-15) MEQ/L BUN 21 H (7-17) mg/dL Creatinine 1.93 H (0.52-1.04) mg/dL Estimated GFR 26.7 ML/MIN Glucose 102 (74-106) mg/dL Lactic Acid 1.0 (0.4-2.0) Calcium 10.0 (8.4-10.2) mg/dL Total Bilirubin 1.50 H (0.2-1.3) mg/dL AST 30 (14-36) U/L ALT 20 (0-35) U/L Alkaline Phosphatase 77 (38-126) U/L Serum Total Protein 7.5 (6.3-8.2) g/dL Albumin 4.3 (3.5-5.0) g/dL - Progress Progress: improved Progress Note: 03/16/20 18:06 X-ray negative for osteomyelitis. Patient has a mild leukocytosis. Patient refused admission. Patient will be discharged AMA. Dr. Maxwell notified. We will give patient a dose of Rocephin in our ED. A prescription for doxycycline will be provided to patient. Patient will leave AGAINST MEDICAL ADVICE. Patient is of sound mind and appropriate to make informed and independent medical de cisions. All risks and benefits regarding hospitalization versus leaving AGAINST MEDICAL ADVICE were discussed. Patient understand that leaving AGAINST MEDICAL ADVICE can result in delayed diagnosis, worsening of symptoms, increased risk morbidity, mortality, short and long-term disability including . In spite of her risks patient has decided to leave AGAINST MEDICAL ADVICE. Patient understand that she may return to our ED at any point if she changes her mind. Patient states she was recently discharged from our hospital and does not want to stay for another admission. Patient agrees to follow-up with her primary care doctor within 48 hours for reevaluation. Patient voices no other complaints or concerns at this time. 03/16/20 18:07 Discussed with : Yin Will see patient in: office Counseled pt/family regarding: lab results, diagnosis, need for follow-up, rad results - Departure Departure Disposition: AMA Clinical Impression: Lymphangitis, Wound infection Condition: Stable Critical Care Time: No Referrals: YARY MAXWELL [Primary Care Provider] - Additional Instructions: Discharge/Care Plan RADHA FRIEND was seen on 03/16/20 in the Emergency Room. The patient was counseled regarding Diagnosis,Lab results, Imaging studies, need for follow up and when to return to the Emergency Room. Prescriptions given: Discharge Note I have spoken with the patient and/or caregivers. I have explained the patient's condition, diagnosis and treatment plan based on the information available to me at this time. I have answered the patient's and/or caregiver's questions and addressed any concerns. The patient and/or caregivers have as good understanding of the patient's diagnosis, condition and treatment plan as can be expected at this point. The vital signs have been stable. The patient's condition is stable and appropriate for discharge from the emergency department. The patient will pursue further outpatient evaluation with the primary care physician or other designated or consulting physician as outlined in the discharge instructions. The patient and/or caregivers are agreeable to this plan of care and follow-up instructions have been explained in detail. The patient and/or caregivers have received these instruction. The patient/and or caregivers are aware that any significant change in condition or worsening of symptoms should prompt an immediate return to this or the closest emergency department or call 911. Prescriptions: Doxycycline Hyclate 100 mg [Vibramycin 100 MG] 100 mg PO BID #14 tab
[2020-03-16 18:35] VITALS: BP 129/61; PULSE 88; O2SAT 93
== END 2020-03-16 18:55 | disposition home or self-care (01) ==
LOC: ED 15:26
DX: I89.1 Lymphangitis (principal); L08.9 Local infection of the skin and subcutaneous tissue, unspecified; S81.812A Laceration without foreign body, left lower leg, initial encounter; Z79.899 Other long term (current) drug therapy; I50.9 Heart failure, unspecified; I25.10 Atherosclerotic heart disease of native coronary artery without angina pectoris
CPT/HCPCS: 36000; 36415; 73590; 80053; 83605; 85025; 87040; 93041; 94760; 96365; 99284; J0696